=== PATIENT | male | born 1955 | race Caucasian/White ===

== ENCOUNTER 2017-08-12 14:41 | Inpatient (IN) ==
[2017-08-12 15:41] LABS: Ammonia 122 UMOL/L (11-32)
[2017-08-12 15:45] LABS: Alanine Aminotransferase 55 U/L (16-61); Albumin 3.9 G/DL (3.4-5.0); Alkaline Phosphatase 116 U/L (45-117); Aspartate Amino Transferase 67 U/L (0-37); Blood Urea Nitrogen 13 MG/DL (7-18); Calcium 9.4 MG/DL (8.5-10.1); Glucose 146 MG/DL (74-106); Osmolality,Calculated 262.8 MOS/KG (273-304); Sodium 130 MMOL/L (136-145); Total Protein 8.8 G/DL (6.4-8.3)
[2017-08-12 15:48] LABS: Basophils # 0.1 10*3/uL (0.0-0.2); Basophils % 0.8 % (0.0-0.8); Eosinophils % 0.1 % (0.00-10.9); Hematocrit 47.4 VOL% (42.0-52.0); Immature Granulocytes % 0.6 %; Immature Granulocytes Absolute 0.07 #; Lymphocytes # 1.5 10*3/uL (1.4-4.0); Lymphocytes % 12.8 % (21.2-54.2); Mean Corpuscular HGB Conc 35.9 GM/DL (32-36); Mean Corpuscular Hemoglobin 31 PG (27-34); Mean Corpuscular Volume 87.3 FL (87-102); Monocytes # 1.1 10*3/uL (0.11-0.8); Monocytes % 9.3 % (1.7-12.7); Neutrophils # 9.2 10*3/uL (1.4-7.4); Neutrophils % 76.4 % (38.7-73.9); Platelet Count 155 T/CUMM (130-400); Red Blood Count 5.43 MC/CUMM (3.8-5.5); Red Cell Distribution Width 14.4 % (9.3-17.3)
[2017-08-12 17:33] LABS: INR 1.2; PT Patient Result 12.1 SECS; Partial Thromboplastin Time 29.7 SECS (0-40)
[2017-08-12 17:41] LABS: Troponin I Only < 0.015 NG/ML (0.00-0.045)
[2017-08-12 18:24] LABS: Apearance,Urine CLEAR (Clear); Bacteria,Urine Occasional /HPF (Few); Bilirubin,Urine Negative (Negative); Blood, Urine Moderate mg/dL (Negative); Glucose,Urine (UA) Negative (Negative); Hyaline Casts,Urine 5 /LPF (0-3); Ketones,Urine Negative (Negative); Mucus,Urine Occasional /LPF (Occasional); Nitrite,Urine Negative (Negative); Protein,Urine Negative; RBC,Urine 22 /HPF (0-4); Squamous Epithelial Cell,Urine Occasional /HPF (0-10); Urine Color Yellow (Yellow); Urine Specific Gravity 1.009 (1.001-1.035); WBC,Urine <1 /HPF (0-6)
[2017-08-12 18:31] LABS: Barbiturates Screen,Urine Negative (Negative); Benzodiazepines Screen,Urine Negative (Negative); Cannabinoid Screen,Urine Negative (Negative); Opiate Screen,Urine Negative (Negative); Phencyclidine Screen,Urine Negative (Negative)
[2017-08-12] MEDS ORDERED: traZODone 50 MG TABLET PO PRN (20:05)
[2017-08-12] MEDS: SODIUM CHLORIDE 0.9% 1,000 ML IV SCH (20:46)
[2017-08-12] MEDS: LACTULOSE 20 GM/30 ML UDCUP PO SCH (20:50)
[2017-08-12] MEDS: ENOXAPARIN 40 MG/0.4 ML SYRINGE SUBCUT SCH (20:50)
[2017-08-13] MEDS ORDERED: ACETAMINOPHEN 325 MG TABLET PO PRN (00:58)
[2017-08-13] MEDS: LACTULOSE 20 GM/30 ML UDCUP PO SCH ×6 (01:09→20:17)
[2017-08-13] MEDS: SODIUM CHLORIDE 0.9% 1,000 ML IV SCH ×3 (03:44→20:19)
[2017-08-13 05:42] LABS: Basophils # 0.1 10*3/uL (0.0-0.2); Basophils % 0.7 % (0.0-0.8); Eosinophils # 0.1 10*3/uL (0.0-0.87); Eosinophils % 0.9 % (0.00-10.9); Hematocrit 41.3 VOL% (42.0-52.0); Hemoglobin 14.6 GM/DL (14.0-18.0); Immature Granulocytes % 0.2 %; Immature Granulocytes Absolute 0.02 #; Lymphocytes # 2.4 10*3/uL (1.4-4.0); Lymphocytes % 28.6 % (21.2-54.2); Mean Corpuscular HGB Conc 35.4 GM/DL (32-36); Mean Corpuscular Hemoglobin 31 PG (27-34); Mean Corpuscular Volume 87.9 FL (87-102); Mean Platelet Volume 10.9 FL (9.6-12.0); Monocytes # 0.8 10*3/uL (0.11-0.8); Monocytes % 9.5 % (1.7-12.7); Neutrophils # 4.9 10*3/uL (1.4-7.4); Neutrophils % 60.1 % (38.7-73.9); Platelet Count 117 T/CUMM (130-400); Red Cell Distribution Width 14.2 % (9.3-17.3); White Blood Count 8.2 T/CUMM (4-12)
[2017-08-13 06:22] LABS: Albumin 3.1 G/DL (3.4-5.0); Calcium 8.5 MG/DL (8.5-10.1); Osmolality,Calculated 266.4 MOS/KG (273-304); Potassium 3.7 MMOL/L (3.5-5.1); Risk Ratio 4.21; Total Protein 6.9 G/DL (6.4-8.3)
[2017-08-13] MEDS ORDERED: PANTOPRAZOLE 40 MG TABLET PO SCH (09:00)
[2017-08-13] MEDS: CYCLOBENZAPRINE 10 MG TABLET PO SCH ×2 (15:20→20:18)
[2017-08-13] MEDS: PANTOPRAZOLE 40 MG TABLET PO SCH (16:46)
[2017-08-13] MEDS: ENOXAPARIN 40 MG/0.4 ML SYRINGE SUBCUT SCH (20:18)
[2017-08-13] MEDS: ARIPiprazole 5 MG TABLET PO SCH (20:18)
[2017-08-13] MEDS: RIFAXIMIN 550 MG TABLET PO SCH (20:18)
[2017-08-13] MEDS: ONDANSETRON 4 MG/2 ML VIAL IV PRN (23:34)
[2017-08-14] MEDS: LACTULOSE 20 GM/30 ML UDCUP PO SCH ×6 (00:11→20:52)
[2017-08-14] MEDS: SODIUM CHLORIDE 0.9% 1,000 ML IV SCH (03:19)
[2017-08-14] MEDS: LEVOTHYROXINE 25 MCG TABLET PO SCH (05:55)
[2017-08-14] MEDS: RIFAXIMIN 550 MG TABLET PO SCH ×2 (09:37→20:51)
[2017-08-14] MEDS: FUROSEMIDE 20 MG TABLET PO SCH (09:37)
[2017-08-14] MEDS: CYCLOBENZAPRINE 10 MG TABLET PO SCH ×3 (09:37→20:51)
[2017-08-14] MEDS: SPIRONOLACTONE 50 MG TABLET PO SCH (09:37)
[2017-08-14] MEDS: PANTOPRAZOLE 40 MG TABLET PO SCH (16:53)
[2017-08-14] MEDS: ARIPiprazole 5 MG TABLET PO SCH (20:51)
[2017-08-14] MEDS: ENOXAPARIN 40 MG/0.4 ML SYRINGE SUBCUT SCH (20:52)
[2017-08-15] MEDS: LACTULOSE 20 GM/30 ML UDCUP PO SCH ×6 (00:49→20:50)
[2017-08-15 05:36] LABS: Basophils % 0.9 % (0.0-0.8); Eosinophils # 0.1 10*3/uL (0.0-0.87); Eosinophils % 1.4 % (0.00-10.9); Hematocrit 35.3 VOL% (42.0-52.0); Hemoglobin 12.3 GM/DL (14.0-18.0); Immature Granulocytes % 0.6 %; Immature Granulocytes Absolute 0.02 #; Lymphocytes # 1.1 10*3/uL (1.4-4.0); Lymphocytes % 32.1 % (21.2-54.2); Mean Corpuscular HGB Conc 34.8 GM/DL (32-36); Mean Corpuscular Hemoglobin 31 PG (27-34); Mean Corpuscular Volume 89.4 FL (87-102); Mean Platelet Volume 10.9 FL (9.6-12.0); Monocytes # 0.4 10*3/uL (0.11-0.8); Monocytes % 9.9 % (1.7-12.7); Neutrophils # 1.9 10*3/uL (1.4-7.4); Neutrophils % 55.1 % (38.7-73.9); Platelet Count 69 T/CUMM (130-400); Red Blood Count 3.95 MC/CUMM (3.8-5.5); Red Cell Distribution Width 14.2 % (9.3-17.3); White Blood Count 3.5 T/CUMM (4-12)
[2017-08-15 05:59] LABS: Band Neutrophils 1 % (0-10); Eosinophils 1 % (0-10); Giant Platelets Few; Hypochromasia 1+; Lymphocytes 28 % (20-55); Platelet Estimate Decreased; Segmented Neutrophils 59 % (50-85); Total Cells Counted 100
[2017-08-15 06:03] LABS: Albumin 2.7 G/DL (3.4-5.0); Bilirubin,Total 1.4 MG/DL (0.2-1.0); Potassium 3.6 MMOL/L (3.5-5.1); Total Protein 6.3 G/DL (6.4-8.3)
[2017-08-15] MEDS: LEVOTHYROXINE 25 MCG TABLET PO SCH (06:28)
[2017-08-15] MEDS: SPIRONOLACTONE 50 MG TABLET PO SCH (09:25)
[2017-08-15] MEDS: FUROSEMIDE 20 MG TABLET PO SCH (09:26)
[2017-08-15] MEDS: CYCLOBENZAPRINE 10 MG TABLET PO SCH ×3 (09:26→20:50)
[2017-08-15] MEDS: RIFAXIMIN 550 MG TABLET PO SCH ×2 (09:26→20:50)
[2017-08-15] MEDS: PANTOPRAZOLE 40 MG TABLET PO SCH (16:40)
[2017-08-15] MEDS: ARIPiprazole 5 MG TABLET PO SCH (20:50)
[2017-08-16] MEDS: LACTULOSE 20 GM/30 ML UDCUP PO SCH ×6 (00:04→20:30)
[2017-08-16 04:11] LABS: Basophils % 0.6 % (0.0-0.8); Eosinophils # 0.1 10*3/uL (0.0-0.87); Eosinophils % 2.4 % (0.00-10.9); Hematocrit 34.4 VOL% (42.0-52.0); Immature Granulocytes % 0.6 %; Lymphocytes % 30.4 % (21.2-54.2); Mean Corpuscular HGB Conc 34.9 GM/DL (32-36); Mean Corpuscular Hemoglobin 31 PG (27-34); Mean Corpuscular Volume 90.1 FL (87-102); Mean Platelet Volume 10.9 FL (9.6-12.0); Monocytes # 0.3 10*3/uL (0.11-0.8); Monocytes % 8.8 % (1.7-12.7); Neutrophils # 1.9 10*3/uL (1.4-7.4); Neutrophils % 57.2 % (38.7-73.9); Platelet Count 62 T/CUMM (130-400); Red Blood Count 3.82 MC/CUMM (3.8-5.5); Red Cell Distribution Width 14.1 % (9.3-17.3); White Blood Count 3.3 T/CUMM (4-12)
[2017-08-16 04:12] LABS: Immature Granulocytes Absolute 0.02 #
[2017-08-16 04:38] LABS: Albumin 2.5 G/DL (3.4-5.0); Bilirubin,Total 1.2 MG/DL (0.2-1.0); Calcium 8.1 MG/DL (8.5-10.1); Potassium 3.7 MMOL/L (3.5-5.1); Total Protein 5.9 G/DL (6.4-8.3)
[2017-08-16 05:35] LABS: Platelet Estimate Decreased
[2017-08-16] MEDS: LEVOTHYROXINE 25 MCG TABLET PO SCH (06:23)
[2017-08-16] MEDS: SPIRONOLACTONE 50 MG TABLET PO SCH (08:20)
[2017-08-16] MEDS: TAMSULOSIN 0.4 MG CAPSULE PO SCH (08:20)
[2017-08-16] MEDS: CYCLOBENZAPRINE 10 MG TABLET PO SCH ×3 (08:20→20:30)
[2017-08-16] MEDS: FUROSEMIDE 20 MG TABLET PO SCH (08:20)
[2017-08-16] MEDS: RIFAXIMIN 550 MG TABLET PO SCH ×2 (08:20→20:30)
[2017-08-16] MEDS: ONDANSETRON 4 MG/2 ML VIAL IV PRN (12:10)
[2017-08-16] MEDS: PANTOPRAZOLE 40 MG TABLET PO SCH (16:21)
[2017-08-16] MEDS: ARIPiprazole 5 MG TABLET PO SCH (20:30)
[2017-08-17] MEDS: LACTULOSE 20 GM/30 ML UDCUP PO SCH ×6 (00:25→20:38)
[2017-08-17 05:24] LABS: Basophils % 0.6 % (0.0-0.8); Eosinophils # 0.1 10*3/uL (0.0-0.87); Eosinophils % 3.5 % (0.00-10.9); Hematocrit 34.1 VOL% (42.0-52.0); Hemoglobin 12.5 GM/DL (14.0-18.0); Immature Granulocytes % 0.3 %; Immature Granulocytes Absolute 0.01 #; Lymphocytes # 0.9 10*3/uL (1.4-4.0); Mean Corpuscular HGB Conc 36.7 GM/DL (32-36); Mean Corpuscular Hemoglobin 32 PG (27-34); Mean Corpuscular Volume 87.2 FL (87-102); Mean Platelet Volume 10.8 FL (9.6-12.0); Monocytes # 0.3 10*3/uL (0.11-0.8); Monocytes % 7.9 % (1.7-12.7); Neutrophils # 1.9 10*3/uL (1.4-7.4); Neutrophils % 58.7 % (38.7-73.9); Platelet Count 68 T/CUMM (130-400); Red Blood Count 3.91 MC/CUMM (3.8-5.5); Red Cell Distribution Width 14.3 % (9.3-17.3); White Blood Count 3.2 T/CUMM (4-12)
[2017-08-17 05:45] LABS: Microcytosis Slight; Platelet Estimate Decreased
[2017-08-17 05:48] LABS: Albumin 2.5 G/DL (3.4-5.0); Osmolality,Calculated 270.8 MOS/KG (273-304); Potassium 3.5 MMOL/L (3.5-5.1)
[2017-08-17] MEDS: LEVOTHYROXINE 25 MCG TABLET PO SCH (06:46)
[2017-08-17] MEDS: FUROSEMIDE 20 MG TABLET PO SCH (08:01)
[2017-08-17] MEDS: TAMSULOSIN 0.4 MG CAPSULE PO SCH (08:01)
[2017-08-17] MEDS: RIFAXIMIN 550 MG TABLET PO SCH ×2 (08:01→20:37)
[2017-08-17] MEDS: CYCLOBENZAPRINE 10 MG TABLET PO SCH ×3 (08:02→20:37)
[2017-08-17] MEDS: SPIRONOLACTONE 50 MG TABLET PO SCH (08:03)
[2017-08-17] MEDS ORDERED: TUBERCULIN SKIN TEST 0.1 ML SYRINGE INTRADERM ONE (14:00)
[2017-08-17] MEDS: PANTOPRAZOLE 40 MG TABLET PO SCH (16:10)
[2017-08-17] MEDS: ZINC OXIDE PASTE 113 GM TUBE TOP SCH (20:41)
[2017-08-17] MEDS: ARIPiprazole 5 MG TABLET PO SCH (20:58)
[2017-08-18] MEDS: LACTULOSE 20 GM/30 ML UDCUP PO SCH ×4 (00:48→13:13)
[2017-08-18] MEDS: LEVOTHYROXINE 25 MCG TABLET PO SCH (07:33)
[2017-08-18] MEDS: CYCLOBENZAPRINE 10 MG TABLET PO SCH (08:53)
[2017-08-18] MEDS: TAMSULOSIN 0.4 MG CAPSULE PO SCH (08:53)
[2017-08-18] MEDS: FUROSEMIDE 20 MG TABLET PO SCH (08:53)
[2017-08-18] MEDS: RIFAXIMIN 550 MG TABLET PO SCH (08:53)
[2017-08-18] MEDS: SPIRONOLACTONE 50 MG TABLET PO SCH (08:53)
[2017-08-18] MEDS: ZINC OXIDE PASTE 113 GM TUBE TOP SCH (08:54)
[2017-08-18 11:42] VITALS: BP 130/60
== END 2017-08-18 14:10 | DRG 442 ==
LOC: N.ED 14:41 → N.EDINP 17:57 → SUATTDRO 17:57 → N.2E 20:01
PROVIDERS: ATTEND Internal Medicine

== ENCOUNTER 2017-08-20 02:28 | Inpatient (IN) ==
[2017-08-20] MEDS ORDERED: cefTRIAXone 1,000 MG in SODIUM CHLORIDE 0.9% 100 ML IV STA (04:27)
[2017-08-20] MEDS ORDERED: ALBUTEROL/IPRATROPIUM 3 ML NEB RESP TX STA (04:27)
[2017-08-20] MEDS ORDERED: hydrALAZINE 20 MG/1 ML VIAL IV STA (04:29)
[2017-08-20] MEDS ORDERED: hydrALAZINE 20 MG/1 ML VIAL ONE (04:29)
[2017-08-20 04:42] LABS: Basophils # 0.1 10*3/uL (0.0-0.2); Basophils % 0.5 % (0.0-0.8); Eosinophils % 0.4 % (0.00-10.9); Hematocrit 41.4 VOL% (42.0-52.0); Immature Granulocytes % 0.6 %; Immature Granulocytes Absolute 0.07 #; Lymphocytes # 1.4 10*3/uL (1.4-4.0); Lymphocytes % 12.6 % (21.2-54.2); Mean Corpuscular HGB Conc 37.2 GM/DL (32-36); Mean Corpuscular Hemoglobin 33 PG (27-34); Mean Corpuscular Volume 87.3 FL (87-102); Mean Platelet Volume 10.3 FL (9.6-12.0); Monocytes % 8.9 % (1.7-12.7); Neutrophils # 8.7 10*3/uL (1.4-7.4); Platelet Count 155 T/CUMM (130-400); Red Blood Count 4.74 MC/CUMM (3.8-5.5); Red Cell Distribution Width 14.6 % (9.3-17.3); White Blood Count 11.3 T/CUMM (4-12)
[2017-08-20 04:46] LABS: Hemoglobin 15.4 GM/DL (14.0-18.0)
[2017-08-20 04:47] LABS: INR 1.3; PT Patient Result 13.4 SECS
[2017-08-20 05:13] LABS: Apearance,Urine CLOUDY (Clear); Bilirubin,Urine Negative (Negative); Blood, Urine Moderate mg/dL (Negative); Glucose,Urine (UA) Negative (Negative); Ketones,Urine 5 mg/dL (Negative); Mucus,Urine Many /LPF (Occasional); Nitrite,Urine Negative (Negative); Protein,Urine 30 MG/DL; RBC,Urine 13 /HPF (0-4); Urine Color Amber (Yellow); Urine Specific Gravity 1.027 (1.001-1.035); WBC,Urine 2 /HPF (0-6)
[2017-08-20 05:18] LABS: Barbiturates Screen,Urine Negative (Negative); Benzodiazepines Screen,Urine Negative (Negative); Cannabinoid Screen,Urine Negative (Negative); Opiate Screen,Urine Negative (Negative); Phencyclidine Screen,Urine Negative (Negative)
[2017-08-20 05:20] LABS: Alanine Aminotransferase 47 U/L (16-61); Alkaline Phosphatase 77 U/L (45-117); Amylase 42 U/L (25-115); Aspartate Amino Transferase 59 U/L (0-37); Blood Urea Nitrogen 11 MG/DL (7-18); Calcium 8.5 MG/DL (8.5-10.1); Glucose 105 MG/DL (74-106); Osmolality,Calculated 268.1 MOS/KG (273-304); Potassium 4.1 MMOL/L (3.5-5.1); Sodium 135 MMOL/L (136-145); Total Protein 7.3 G/DL (6.4-8.3); Troponin I Only < 0.015 NG/ML (0.00-0.045)
[2017-08-20 05:24] LABS: ABG Base Excess -1.5 MMOL/L (-2.5-2.5); ABG HCO3 23.2 MMOL/L (20-26); ABG Oxygen Saturation 98.6 % (95-100); ABG PCO2 27.5 MM HG (35-48); ABG PH 7.478 (7.35-7.45); ABG TCO2 17.1 MMOL/L (23-27); Allen Test Positive; Pt O2 Delivery Device Room Air
[2017-08-20 05:33] LABS: Lactic Acid 2.2 MMOL/L (0.4-2.0)
[2017-08-20] MEDS ORDERED: cefTRIAXone 1,000 MG VIAL ONE (05:35)
[2017-08-20] MEDS ORDERED: PIPERACILLIN/TAZOBACTAM 3,375 MG in SODIUM CHLORIDE 0.9% 100 ML IV SCH (06:00)
[2017-08-20 06:27] LABS: INR 1.3; PT Patient Result 13.4 SECS; Partial Thromboplastin Time 28.9 SECS (0-40)
[2017-08-20 06:30] LABS: Ammonia 51 UMOL/L (11-32)
[2017-08-20] MEDS ORDERED: ONDANSETRON 4 MG/2 ML VIAL ONE ×2 (06:38→14:55)
[2017-08-20] MEDS ORDERED: PIPERACILLIN/TAZOBACTAM 3,375 MG VIAL IV ONE ×2 (07:07→07:50)
[2017-08-20] MEDS ORDERED: VANCOMYCIN INJ 1,250 MG in SODIUM CHLORIDE 0.9% 250 ML IV SCH (08:00)
[2017-08-20] MEDS: PIPERACILLIN/TAZOBACTAM 3,375 MG in SODIUM CHLORIDE 0.9% 100 ML IV SCH ×2 (08:04→16:07)
[2017-08-20] MEDS ORDERED: SODIUM CHLORIDE 0.9% 1,000 ML IV STA (08:34)
[2017-08-20] MEDS: SODIUM CHLORIDE 0.9% 1,000 ML IV SCH ×2 (08:46→19:38)
[2017-08-20] MEDS: ENOXAPARIN 40 MG/0.4 ML SYRINGE SUBCUT SCH (08:46)
[2017-08-20] MEDS ORDERED: PANTOPRAZOLE 40 MG VIAL IV ONE (09:30)
[2017-08-20] MEDS: PANTOPRAZOLE 40 MG VIAL IV SCH (09:43)
[2017-08-20 09:52] LABS: Lactic Acid 3.8 MMOL/L (0.4-2.0)
[2017-08-20] MEDS: LACTULOSE 160 GM/240 ML BOTTLE RECTAL SCH ×2 (10:38→23:17)
[2017-08-20] MEDS ORDERED: PROPOFOL 1,000 MG/100 ML BOTTLE IV ONE (13:58)
[2017-08-20 14:44] LABS: ABG Base Excess -4.8 MMOL/L (-2.5-2.5); ABG HCO3 20.5 MMOL/L (20-26); ABG Oxygen Saturation 99.5 % (95-100); ABG PH 7.387 (7.35-7.45); ABG TCO2 16.9 MMOL/L (23-27)
[2017-08-20] MEDS ORDERED: PROPOFOL 200 MG/20 ML VIAL IV ONE (14:54)
[2017-08-20] MEDS ORDERED: SEVOFLURANE 1 UNIT/15 MINUTE INH ONE (14:55)
[2017-08-20] MEDS ORDERED: PHENYLEPHRINE 10 MG/1 ML VIAL IV ONE (14:55)
[2017-08-20] MEDS ORDERED: LACTATED RINGERS 1,000 ML IV ONE (14:55)
[2017-08-20] MEDS ORDERED: ROCURONIUM 100 MG/10 ML VIAL IV ONE (14:55)
[2017-08-20] MEDS ORDERED: fentaNYL 100 MCG/2 ML VIAL ONE (14:55)
[2017-08-20] MEDS ORDERED: SODIUM CHLORIDE 0.9% 250 ML IV ONE (14:55)
[2017-08-20] MEDS: PROPOFOL 1,000 MG/100 ML BOTTLE IV SCH ×2 (15:52→23:17)
[2017-08-20] MEDS: LORazepam 2 MG/1 ML VIAL IV PRN (16:32)
[2017-08-20] MEDS: MORPHINE 2 MG/1 ML SYRINGE IV PRN (16:32)
[2017-08-20] MEDS: fentaNYL INJ 1,250 MCG in SODIUM CHLORIDE 0.9% 225 ML IV SCH (17:00)
[2017-08-20 20:23] LABS: HIV Antigen/Antibody Result Nonreactive (Nonreactive)
[2017-08-20] MEDS: methylPREDNISolone SOD SUC 40 MG/1 ML VIAL IV SCH (22:08)
[2017-08-21] MEDS: METOCLOPRAMIDE 10 MG/2 ML VIAL IV SCH ×5 (00:23→23:48)
[2017-08-21] MEDS: PIPERACILLIN/TAZOBACTAM 3,375 MG in SODIUM CHLORIDE 0.9% 100 ML IV SCH ×4 (00:23→23:48)
[2017-08-21 04:58] LABS: ABG Base Excess -1.9 MMOL/L (-2.5-2.5); ABG HCO3 22.9 MMOL/L (20-26); ABG Oxygen Saturation 99.7 % (95-100); ABG PCO2 30.9 MM HG (35-48); ABG PH 7.446 (7.35-7.45); ABG TCO2 18.9 MMOL/L (23-27)
[2017-08-21 05:24] LABS: INR 1.6; PT Patient Result 16.2 SECS; Partial Thromboplastin Time 33.1 SECS (0-40)
[2017-08-21 05:26] LABS: Basophils % 0.4 % (0.0-0.8); Eosinophils % 0.4 % (0.00-10.9); Hematocrit 36.6 VOL% (42.0-52.0); Hemoglobin 12.5 GM/DL (14.0-18.0); Immature Granulocytes % 0.5 %; Immature Granulocytes Absolute 0.05 #; Lymphocytes # 1.6 10*3/uL (1.4-4.0); Lymphocytes % 16.8 % (21.2-54.2); Mean Corpuscular HGB Conc 34.2 GM/DL (32-36); Mean Corpuscular Hemoglobin 32 PG (27-34); Mean Corpuscular Volume 93.1 FL (87-102); Mean Platelet Volume 10.7 FL (9.6-12.0); Monocytes # 0.9 10*3/uL (0.11-0.8); Monocytes % 9.2 % (1.7-12.7); Neutrophils % 72.7 % (38.7-73.9); Platelet Count 110 T/CUMM (130-400); Red Blood Count 3.93 MC/CUMM (3.8-5.5); Red Cell Distribution Width 15.5 % (9.3-17.3); White Blood Count 9.6 T/CUMM (4-12)
[2017-08-21] MEDS: SODIUM CHLORIDE 0.9% 1,000 ML IV SCH ×3 (06:20→07:48)
[2017-08-21] MEDS: PROPOFOL 1,000 MG/100 ML BOTTLE IV SCH (06:21)
[2017-08-21 06:38] LABS: Albumin 2.3 G/DL (3.4-5.0); Bilirubin,Total 1.5 MG/DL (0.2-1.0); Calcium 7.7 MG/DL (8.5-10.1); Osmolality,Calculated 284.3 MOS/KG (273-304); Potassium 3.8 MMOL/L (3.5-5.1); Total Protein 5.5 G/DL (6.4-8.3)
[2017-08-21] MEDS ORDERED: MAGNESIUM SULF RIDER 2 GM in PREMIX 1 EACH IV ONE (08:17)
[2017-08-21] MEDS: fentaNYL INJ 1,250 MCG in SODIUM CHLORIDE 0.9% 225 ML IV SCH (09:05)
[2017-08-21] MEDS: ENOXAPARIN 40 MG/0.4 ML SYRINGE SUBCUT SCH (09:21)
[2017-08-21] MEDS: LACTULOSE 20 GM/30 ML UDCUP NG SCH ×3 (09:21→21:33)
[2017-08-21] MEDS: methylPREDNISolone SOD SUC 40 MG/1 ML VIAL IV SCH ×2 (09:22→21:33)
[2017-08-21] MEDS: PANTOPRAZOLE 40 MG VIAL IV SCH (09:23)
[2017-08-21] MEDS: LACTATED RINGERS 1,000 ML IV SCH ×3 (09:25→22:04)
[2017-08-21 11:32] LABS: ABG Base Excess -3.5 MMOL/L (-2.5-2.5); ABG HCO3 21.5 MMOL/L (20-26); ABG Oxygen Saturation 96.4 % (95-100); ABG PCO2 42.4 MM HG (35-48); ABG PO2 91.2 MM HG (80-95); ABG TCO2 19.7 MMOL/L (23-27)
[2017-08-21] MEDS: ZINC OXIDE PASTE 113 GM TUBE TOP SCH ×2 (13:13→21:45)
[2017-08-21 14:53] LABS: ABG Base Excess -2.9 MMOL/L (-2.5-2.5); ABG Oxygen Saturation 97.9 % (95-100); ABG PCO2 34.7 MM HG (35-48); ABG PH 7.396 (7.35-7.45); ABG TCO2 18.6 MMOL/L (23-27)
[2017-08-22] MEDS: LACTATED RINGERS 1,000 ML IV SCH ×5 (03:15→17:40)
[2017-08-22 04:49] LABS: Basophils % 0.3 % (0.0-0.8); Hematocrit 37.1 VOL% (42.0-52.0); Immature Granulocytes % 1.2 %; Immature Granulocytes Absolute 0.09 #; Lymphocytes # 0.7 10*3/uL (1.4-4.0); Lymphocytes % 9.6 % (21.2-54.2); Mean Corpuscular Hemoglobin 32 PG (27-34); Mean Corpuscular Volume 91.4 FL (87-102); Mean Platelet Volume 10.7 FL (9.6-12.0); Monocytes # 0.4 10*3/uL (0.11-0.8); Monocytes % 5.7 % (1.7-12.7); Neutrophils # 6.5 10*3/uL (1.4-7.4); Neutrophils % 83.2 % (38.7-73.9); Platelet Count 90 T/CUMM (130-400); Red Blood Count 4.06 MC/CUMM (3.8-5.5); Red Cell Distribution Width 14.8 % (9.3-17.3); White Blood Count 7.7 T/CUMM (4-12)
[2017-08-22 05:52] LABS: Platelet Estimate Decreased
[2017-08-22 06:13] LABS: Albumin 2.3 G/DL (3.4-5.0); Bilirubin,Total 1.2 MG/DL (0.2-1.0); Calcium 8.3 MG/DL (8.5-10.1); Osmolality,Calculated 281.5 MOS/KG (273-304); Potassium 4.5 MMOL/L (3.5-5.1); Total Protein 5.9 G/DL (6.4-8.3)
[2017-08-22] MEDS: METOCLOPRAMIDE 10 MG/2 ML VIAL IV SCH ×3 (06:20→19:25)
[2017-08-22] MEDS: ONDANSETRON 4 MG/2 ML VIAL IV PRN ×2 (07:52→16:07)
[2017-08-22] MEDS: LACTULOSE 20 GM/30 ML UDCUP NG SCH ×3 (09:13→22:39)
[2017-08-22] MEDS: ENOXAPARIN 40 MG/0.4 ML SYRINGE SUBCUT SCH (09:13)
[2017-08-22] MEDS: PANTOPRAZOLE 40 MG VIAL IV SCH (09:14)
[2017-08-22] MEDS: ZINC OXIDE PASTE 113 GM TUBE TOP SCH ×2 (09:14→23:18)
[2017-08-22] MEDS: PIPERACILLIN/TAZOBACTAM 3,375 MG in SODIUM CHLORIDE 0.9% 100 ML IV SCH ×2 (09:14→16:17)
[2017-08-22] MEDS: methylPREDNISolone SOD SUC 40 MG/1 ML VIAL IV SCH ×2 (09:15→22:52)
[2017-08-22] MEDS: TAMSULOSIN 0.4 MG CAPSULE PO SCH (10:02)
[2017-08-22] MEDS: MORPHINE 2 MG/1 ML SYRINGE IV PRN ×2 (16:24→22:56)
[2017-08-23] MEDS: METOCLOPRAMIDE 10 MG/2 ML VIAL IV SCH ×4 (02:59→18:14)
[2017-08-23] MEDS: PIPERACILLIN/TAZOBACTAM 3,375 MG in SODIUM CHLORIDE 0.9% 100 ML IV SCH ×2 (02:59→09:46)
[2017-08-23] MEDS: LACTATED RINGERS 1,000 ML IV SCH ×4 (03:02→20:30)
[2017-08-23] MEDS: LEVOTHYROXINE 50 MCG TABLET PO SCH ×2 (06:08→07:09)
[2017-08-23 07:21] LABS: Basophils % 0.2 % (0.0-0.8); Hematocrit 37.6 VOL% (42.0-52.0); Hemoglobin 12.7 GM/DL (14.0-18.0); Immature Granulocytes % 1.5 %; Immature Granulocytes Absolute 0.09 #; Lymphocytes # 0.6 10*3/uL (1.4-4.0); Lymphocytes % 9.8 % (21.2-54.2); Mean Corpuscular HGB Conc 33.8 GM/DL (32-36); Mean Corpuscular Hemoglobin 32 PG (27-34); Mean Corpuscular Volume 93.3 FL (87-102); Mean Platelet Volume 10.8 FL (9.6-12.0); Monocytes # 0.3 10*3/uL (0.11-0.8); Monocytes % 5.5 % (1.7-12.7); Red Blood Count 4.03 MC/CUMM (3.8-5.5); Red Cell Distribution Width 14.6 % (9.3-17.3)
[2017-08-23 07:24] LABS: Platelet Count 94 T/CUMM (130-400)
[2017-08-23 07:44] LABS: Platelet Estimate Decreased
[2017-08-23 07:46] LABS: Albumin 2.3 G/DL (3.4-5.0); Bilirubin,Total 1.6 MG/DL (0.2-1.0); Calcium 8.9 MG/DL (8.5-10.1); Osmolality,Calculated 288.1 MOS/KG (273-304); Potassium 4.8 MMOL/L (3.5-5.1); Total Protein 6.2 G/DL (6.4-8.3)
[2017-08-23] MEDS: methylPREDNISolone SOD SUC 40 MG/1 ML VIAL IV SCH ×2 (09:27→22:22)
[2017-08-23] MEDS: PANTOPRAZOLE 40 MG VIAL IV SCH (09:29)
[2017-08-23] MEDS: ENOXAPARIN 40 MG/0.4 ML SYRINGE SUBCUT SCH (09:31)
[2017-08-23] MEDS: TAMSULOSIN 0.4 MG CAPSULE PO SCH (09:33)
[2017-08-23] MEDS: LACTULOSE 20 GM/30 ML UDCUP NG SCH ×3 (09:33→22:22)
[2017-08-23] MEDS: ZINC OXIDE PASTE 113 GM TUBE TOP SCH ×2 (09:47→21:49)
[2017-08-23] MEDS: ONDANSETRON 4 MG/2 ML VIAL IV PRN (12:00)
[2017-08-23] MEDS: LEVOFLOXACIN INJ 750 MG in PREMIX 1 EACH IV SCH (12:02)
[2017-08-24 03:25] LABS: ABG Base Excess 4.1 MMOL/L (-2.5-2.5); ABG HCO3 27.5 MMOL/L (20-26); ABG Oxygen Saturation 95.7 % (95-100); ABG PCO2 37.1 MM HG (35-48); ABG PH 7.488 (7.35-7.45); ABG PO2 85.8 MM HG (80-95); ABG TCO2 28.7 MMOL/L (23-27); Allen Test Positive
[2017-08-24] MEDS: LACTATED RINGERS 1,000 ML IV SCH ×4 (05:32→20:32)
[2017-08-24] MEDS: METOCLOPRAMIDE 10 MG/2 ML VIAL IV SCH ×4 (05:34→17:31)
[2017-08-24 05:58] LABS: Basophils % 0.3 % (0.0-0.8); Hematocrit 37.3 VOL% (42.0-52.0); Hemoglobin 13.2 GM/DL (14.0-18.0); Immature Granulocytes % 2.3 %; Immature Granulocytes Absolute 0.14 #; Lymphocytes # 0.6 10*3/uL (1.4-4.0); Lymphocytes % 10.7 % (21.2-54.2); Mean Corpuscular HGB Conc 35.4 GM/DL (32-36); Mean Corpuscular Hemoglobin 32 PG (27-34); Mean Corpuscular Volume 89.9 FL (87-102); Mean Platelet Volume 10.8 FL (9.6-12.0); Monocytes # 0.5 10*3/uL (0.11-0.8); Monocytes % 8.8 % (1.7-12.7); Neutrophils # 4.7 10*3/uL (1.4-7.4); Neutrophils % 77.9 % (38.7-73.9); Platelet Count 95 T/CUMM (130-400); Red Blood Count 4.15 MC/CUMM (3.8-5.5); Red Cell Distribution Width 14.5 % (9.3-17.3)
[2017-08-24 06:24] LABS: Hypochromasia 1+
[2017-08-24 06:28] LABS: Albumin 2.3 G/DL (3.4-5.0); Bilirubin,Total 0.9 MG/DL (0.2-1.0); Calcium 9.1 MG/DL (8.5-10.1); Osmolality,Calculated 290.8 MOS/KG (273-304); Potassium 4.2 MMOL/L (3.5-5.1); Total Protein 6.1 G/DL (6.4-8.3)
[2017-08-24] MEDS: LEVOTHYROXINE 50 MCG TABLET PO SCH (07:04)
[2017-08-24] MEDS: PANTOPRAZOLE 40 MG VIAL IV SCH (09:06)
[2017-08-24] MEDS: TAMSULOSIN 0.4 MG CAPSULE PO SCH (09:06)
[2017-08-24] MEDS: methylPREDNISolone SOD SUC 40 MG/1 ML VIAL IV SCH ×2 (09:06→22:36)
[2017-08-24] MEDS: LEVOFLOXACIN INJ 750 MG in PREMIX 1 EACH IV SCH (09:06)
[2017-08-24] MEDS: LACTULOSE 20 GM/30 ML UDCUP NG SCH ×2 (09:06→22:36)
[2017-08-24] MEDS: ENOXAPARIN 40 MG/0.4 ML SYRINGE SUBCUT SCH (09:06)
[2017-08-24] MEDS: ZINC OXIDE PASTE 113 GM TUBE TOP SCH (09:08)
[2017-08-24] MEDS ORDERED: DEXTROSE 50% 25 GM/50 ML VIAL IV PRN (16:06)
[2017-08-24] MEDS ORDERED: GLUCAGON 1 MG VIAL IM PRN (16:06)
[2017-08-24] MEDS ORDERED: INSULIN LISPRO 100 UNIT/ML SUBCUT SCH (16:30)
[2017-08-24] MEDS: MORPHINE 2 MG/1 ML SYRINGE IV PRN (22:39)
[2017-08-25] MEDS: LACTATED RINGERS 1,000 ML IV SCH ×4 (01:30→17:31)
[2017-08-25] MEDS: METOCLOPRAMIDE 10 MG/2 ML VIAL IV SCH ×5 (06:09→23:22)
[2017-08-25] MEDS: ZINC OXIDE PASTE 113 GM TUBE TOP SCH ×3 (06:12→20:22)
[2017-08-25 06:58] LABS: Basophils % 0.2 % (0.0-0.8); Hematocrit 38.1 VOL% (42.0-52.0); Hemoglobin 12.9 GM/DL (14.0-18.0); Immature Granulocytes % 4.1 %; Immature Granulocytes Absolute 0.18 #; Lymphocytes # 0.5 10*3/uL (1.4-4.0); Lymphocytes % 11.5 % (21.2-54.2); Mean Corpuscular HGB Conc 33.9 GM/DL (32-36); Mean Corpuscular Hemoglobin 32 PG (27-34); Mean Corpuscular Volume 94.1 FL (87-102); Mean Platelet Volume 10.9 FL (9.6-12.0); Monocytes # 0.2 10*3/uL (0.11-0.8); Monocytes % 5.3 % (1.7-12.7); Neutrophils # 3.4 10*3/uL (1.4-7.4); Neutrophils % 78.9 % (38.7-73.9); Platelet Count 84 T/CUMM (130-400); Red Blood Count 4.05 MC/CUMM (3.8-5.5); Red Cell Distribution Width 14.3 % (9.3-17.3); White Blood Count 4.4 T/CUMM (4-12)
[2017-08-25 07:14] LABS: Hypochromasia 1+; Microcytosis Slight; Ovalocytes Slight; Platelet Estimate Decreased
[2017-08-25 07:21] LABS: Osmolality,Calculated 289.1 MOS/KG (273-304); Potassium 4.6 MMOL/L (3.5-5.1)
[2017-08-25] MEDS: LEVOTHYROXINE 50 MCG TABLET PO SCH (08:54)
[2017-08-25] MEDS: LEVOFLOXACIN INJ 750 MG in PREMIX 1 EACH IV SCH (09:55)
[2017-08-25] MEDS: LACTULOSE 20 GM/30 ML UDCUP NG SCH ×2 (09:56→20:22)
[2017-08-25] MEDS: ENOXAPARIN 40 MG/0.4 ML SYRINGE SUBCUT SCH (09:56)
[2017-08-25] MEDS: TAMSULOSIN 0.4 MG CAPSULE PO SCH (09:56)
[2017-08-25] MEDS: PANTOPRAZOLE 40 MG VIAL IV SCH (09:57)
[2017-08-25] MEDS: methylPREDNISolone SOD SUC 40 MG/1 ML VIAL IV SCH (09:57)
[2017-08-26 04:54] LABS: Basophils % 0.2 % (0.0-0.8); Eosinophils % 0.2 % (0.00-10.9); Hematocrit 35.1 VOL% (42.0-52.0); Hemoglobin 12.1 GM/DL (14.0-18.0); Immature Granulocytes Absolute 0.18 #; Lymphocytes # 0.8 10*3/uL (1.4-4.0); Lymphocytes % 13.1 % (21.2-54.2); Mean Corpuscular HGB Conc 34.5 GM/DL (32-36); Mean Corpuscular Hemoglobin 32 PG (27-34); Mean Corpuscular Volume 92.9 FL (87-102); Mean Platelet Volume 11.3 FL (9.6-12.0); Monocytes # 0.5 10*3/uL (0.11-0.8); Monocytes % 7.6 % (1.7-12.7); Neutrophils # 4.6 10*3/uL (1.4-7.4); Neutrophils % 75.9 % (38.7-73.9); Platelet Count 88 T/CUMM (130-400); Red Blood Count 3.78 MC/CUMM (3.8-5.5); Red Cell Distribution Width 14.2 % (9.3-17.3)
[2017-08-26 05:20] LABS: Hypochromasia 1+; Platelet Estimate Decreased
[2017-08-26 05:21] LABS: Giant Platelets Few; Microcytosis Slight
[2017-08-26 05:32] LABS: Calcium 8.5 MG/DL (8.5-10.1); Osmolality,Calculated 282.4 MOS/KG (273-304); Potassium 4.2 MMOL/L (3.5-5.1); Total Protein 5.1 G/DL (6.4-8.3)
[2017-08-26] MEDS: LEVOTHYROXINE 50 MCG TABLET PO SCH (05:35)
[2017-08-26] MEDS: METOCLOPRAMIDE 10 MG/2 ML VIAL IV SCH ×4 (05:35→23:43)
[2017-08-26] MEDS: LACTATED RINGERS 1,000 ML IV SCH ×2 (05:36→06:23)
[2017-08-26] MEDS: TAMSULOSIN 0.4 MG CAPSULE PO SCH (10:24)
[2017-08-26] MEDS: LACTULOSE 20 GM/30 ML UDCUP NG SCH (10:28)
[2017-08-26] MEDS: PANTOPRAZOLE 40 MG VIAL IV SCH (10:29)
[2017-08-26] MEDS: LEVOFLOXACIN INJ 750 MG in PREMIX 1 EACH IV SCH (10:32)
[2017-08-26] MEDS: ENOXAPARIN 40 MG/0.4 ML SYRINGE SUBCUT SCH (10:32)
[2017-08-26] MEDS: ZINC OXIDE PASTE 113 GM TUBE TOP SCH ×2 (10:34→23:46)
[2017-08-26] MEDS: methylPREDNISolone SOD SUC 40 MG/1 ML VIAL IV SCH (13:39)
[2017-08-26] MEDS: MORPHINE 2 MG/1 ML SYRINGE IV PRN (13:46)
[2017-08-26] MEDS: LACTULOSE 20 GM/30 ML UDCUP PO SCH (20:29)
[2017-08-27] MEDS: LACTATED RINGERS 1,000 ML IV SCH (02:10)
[2017-08-27] MEDS: LEVOTHYROXINE 50 MCG TABLET PO SCH (06:00)
[2017-08-27] MEDS: METOCLOPRAMIDE 10 MG/2 ML VIAL IV SCH ×2 (06:08→15:25)
[2017-08-27] MEDS ORDERED: TUBERCULIN SKIN TEST 0.1 ML SYRINGE INTRADERM ONE (08:36)
[2017-08-27] MEDS: ZINC OXIDE PASTE 113 GM TUBE TOP SCH ×2 (10:15→21:18)
[2017-08-27] MEDS: LORazepam 2 MG/1 ML VIAL IV PRN (10:55)
[2017-08-27] MEDS: PANTOPRAZOLE 40 MG VIAL IV SCH (10:59)
[2017-08-27] MEDS: LEVOFLOXACIN INJ 750 MG in PREMIX 1 EACH IV SCH (11:01)
[2017-08-27] MEDS: LACTULOSE 20 GM/30 ML UDCUP PO SCH ×3 (13:07→21:18)
[2017-08-27] MEDS: TAMSULOSIN 0.4 MG CAPSULE PO SCH (13:07)
[2017-08-27] MEDS: ENOXAPARIN 40 MG/0.4 ML SYRINGE SUBCUT SCH (13:41)
[2017-08-27] MEDS: methylPREDNISolone SOD SUC 40 MG/1 ML VIAL IV SCH (13:42)
[2017-08-27] MEDS ORDERED: HALOPERIDOL 5 MG/ML AMP IM PRN (16:33)
[2017-08-27] MEDS: METOCLOPRAMIDE 10 MG TABLET PO SCH (21:18)
[2017-08-28] MEDS: LEVOTHYROXINE 50 MCG TABLET PO SCH (06:22)
[2017-08-28] MEDS: METOCLOPRAMIDE 10 MG TABLET PO SCH ×4 (07:25→21:56)
[2017-08-28] MEDS ORDERED: PANTOPRAZOLE 40 MG TABLET PO SCH (09:00)
[2017-08-28] MEDS: LACTATED RINGERS 1,000 ML IV SCH ×2 (10:39→12:57)
[2017-08-28] MEDS: TAMSULOSIN 0.4 MG CAPSULE PO SCH (10:48)
[2017-08-28] MEDS: ENOXAPARIN 40 MG/0.4 ML SYRINGE SUBCUT SCH (10:49)
[2017-08-28] MEDS: LACTULOSE 20 GM/30 ML UDCUP PO SCH ×3 (10:49→21:56)
[2017-08-28] MEDS: ZINC OXIDE PASTE 113 GM TUBE TOP SCH ×2 (10:58→21:56)
[2017-08-28] MEDS: LEVOFLOXACIN INJ 750 MG in PREMIX 1 EACH IV SCH (12:57)
[2017-08-28 20:47] VITALS: BP 129/78
== END 2017-08-28 22:30 | DRG 336 ==
LOC: EDBD → EDUNIT# → N.ED 02:28 → N.EDINP 06:49 → SUATTDRO 06:49 → N.EDINP 12:50 → N.ICU 14:49 → N.3E 08-22 11:20
PROVIDERS: ADMIT Family Medicine; ATTEND Internal Medicine

== ENCOUNTER 2017-08-31 14:59 | Inpatient (IN) ==
[2017-08-31 15:49] LABS: Basophils # 0.1 10*3/uL (0.0-0.2); Basophils % 0.3 % (0.0-0.8); Eosinophils # 0.1 10*3/uL (0.0-0.87); Eosinophils % 0.6 % (0.00-10.9); Hematocrit 41.3 VOL% (42.0-52.0); Immature Granulocytes % 1.4 %; Immature Granulocytes Absolute 0.26 #; Lymphocytes # 1.2 10*3/uL (1.4-4.0); Lymphocytes % 6.1 % (21.2-54.2); Mean Corpuscular HGB Conc 36.3 GM/DL (32-36); Mean Corpuscular Hemoglobin 32 PG (27-34); Mean Platelet Volume 11.6 FL (9.6-12.0); Monocytes # 1.4 10*3/uL (0.11-0.8); Monocytes % 7.1 % (1.7-12.7); Neutrophils # 16.2 10*3/uL (1.4-7.4); Neutrophils % 84.5 % (38.7-73.9); Platelet Count 160 T/CUMM (130-400); Red Blood Count 4.64 MC/CUMM (3.8-5.5); Red Cell Distribution Width 15.9 % (9.3-17.3); White Blood Count 19.1 T/CUMM (4-12)
[2017-08-31 15:57] LABS: INR 1.3; PT Patient Result 13.4 SECS
[2017-08-31 16:22] LABS: Ammonia 81 UMOL/L (11-32)
[2017-08-31 16:28] LABS: Alanine Aminotransferase 65 U/L (16-61); Albumin 2.7 G/DL (3.4-5.0); Alkaline Phosphatase 70 U/L (45-117); Aspartate Amino Transferase 80 U/L (0-37); Blood Urea Nitrogen 18 MG/DL (7-18); Calcium 8.4 MG/DL (8.5-10.1); Glucose 114 MG/DL (74-106); Lactic Acid 4.7 MMOL/L (0.4-2.0); Osmolality,Calculated 275.8 MOS/KG (273-304); Sodium 137 MMOL/L (136-145); Total Protein 6.2 G/DL (6.4-8.3); Troponin I Only < 0.015 NG/ML (0.00-0.045)
[2017-08-31 16:37] LABS: Apearance,Urine CLEAR (Clear); Bacteria,Urine Occasional /HPF (Few); Bilirubin,Urine Negative (Negative); Blood, Urine Large mg/dL (Negative); Glucose,Urine (UA) Negative (Negative); Hyaline Casts,Urine 7 /LPF (0-3); Ketones,Urine Negative (Negative); Mucus,Urine Few /LPF (Occasional); Nitrite,Urine Negative (Negative); Protein,Urine 30 MG/DL; RBC,Urine 173 /HPF (0-4); Sperm,Urine Occasional /HPF (Negative); Squamous Epithelial Cell,Urine Occasional /HPF (0-10); Urine Color Amber (Yellow); Urine Specific Gravity 1.029 (1.001-1.035); WBC,Urine 14 /HPF (0-6)
[2017-08-31] MEDS ORDERED: SODIUM CHLORIDE 0.9% 1,000 ML IV STA (16:45)
[2017-08-31] MEDS ORDERED: MEROPENEM 1,000 MG in SYRINGE 1 EACH IV SCH (17:00)
[2017-08-31 17:23] LABS: Barbiturates Screen,Urine Negative (Negative); Benzodiazepines Screen,Urine Positive (Negative); Cannabinoid Screen,Urine Negative (Negative); Opiate Screen,Urine Negative (Negative); Phencyclidine Screen,Urine Negative (Negative)
[2017-08-31] MEDS ORDERED: MEROPENEM 1,000 MG VIAL IV ONE (17:43)
[2017-08-31] MEDS ORDERED: SODIUM CHLORIDE 0.9% 3,000 ML IV ONE (18:01)
[2017-08-31 18:48] LABS: ABG HCO3 24.9 MMOL/L (20-26); ABG Oxygen Saturation 97.9 % (95-100); ABG PCO2 33.8 MM HG (35-48); ABG PH 7.486 (7.35-7.45); ABG PO2 112.7 MM HG (80-95)
[2017-08-31 19:02] LABS: INR 1.3; PT Patient Result 13.3 SECS; Partial Thromboplastin Time 26.6 SECS (0-40)
[2017-08-31] MEDS ORDERED: PIPERACILLIN/TAZOBACTAM 3,375 MG VIAL IV ONE (19:23)
[2017-08-31] MEDS: PIPERACILLIN/TAZOBACTAM 3,375 MG in SODIUM CHLORIDE 0.9% 100 ML IV SCH (19:30)
[2017-08-31] MEDS ORDERED: LACTULOSE 20 GM/30 ML UDCUP ONE (20:01)
[2017-08-31] MEDS: LACTULOSE 20 GM/30 ML UDCUP NG SCH ×2 (20:02→23:15)
[2017-08-31] MEDS ORDERED: VANCOMYCIN INJ 1,500 MG in SODIUM CHLORIDE 0.9% 250 ML IV SCH (23:00)
[2017-09-01 03:19] LABS: ABG Base Excess -1.1 MMOL/L (-2.5-2.5); ABG HCO3 23.5 MMOL/L (20-26); ABG Oxygen Saturation 97.9 % (95-100); ABG PH 7.455 (7.35-7.45); ABG TCO2 18.9 MMOL/L (23-27); Allen Test Positive
[2017-09-01] MEDS: PIPERACILLIN/TAZOBACTAM 3,375 MG in SODIUM CHLORIDE 0.9% 100 ML IV SCH ×3 (03:22→18:32)
[2017-09-01] MEDS: LACTULOSE 20 GM/30 ML UDCUP NG SCH ×5 (03:22→20:25)
[2017-09-01 05:48] LABS: Basophils # 0.1 10*3/uL (0.0-0.2); Basophils % 0.3 % (0.0-0.8); Eosinophils # 0.1 10*3/uL (0.0-0.87); Eosinophils % 0.4 % (0.00-10.9); Hematocrit 37.7 VOL% (42.0-52.0); Immature Granulocytes Absolute 0.16 #; Lymphocytes # 1.3 10*3/uL (1.4-4.0); Mean Corpuscular HGB Conc 34.5 GM/DL (32-36); Mean Corpuscular Hemoglobin 32 PG (27-34); Mean Corpuscular Volume 93.3 FL (87-102); Mean Platelet Volume 11.4 FL (9.6-12.0); Monocytes # 1.2 10*3/uL (0.11-0.8); Monocytes % 7.4 % (1.7-12.7); Neutrophils # 13.5 10*3/uL (1.4-7.4); Neutrophils % 82.9 % (38.7-73.9); Red Blood Count 4.04 MC/CUMM (3.8-5.5); Red Cell Distribution Width 15.8 % (9.3-17.3); White Blood Count 16.2 T/CUMM (4-12)
[2017-09-01 05:58] LABS: Apearance,Urine CLOUDY (Clear); Bilirubin,Urine Negative (Negative); Blood, Urine Large mg/dL (Negative); Glucose,Urine (UA) Negative (Negative); Ketones,Urine 5 mg/dL (Negative); Mucus,Urine Occasional /LPF (Occasional); Nitrite,Urine Negative (Negative); Protein,Urine 30 MG/DL; RBC,Urine 86 /HPF (0-4); Squamous Epithelial Cell,Urine Occasional /HPF (0-10); Urine Color Amber (Yellow); Urine Specific Gravity 1.059 (1.001-1.035); WBC,Urine 6 /HPF (0-6)
[2017-09-01 06:05] LABS: Platelet Count 122 T/CUMM (130-400)
[2017-09-01 06:18] LABS: Albumin 2.4 G/DL (3.4-5.0); Bilirubin,Total 1.8 MG/DL (0.2-1.0); Calcium 7.8 MG/DL (8.5-10.1); Potassium 3.4 MMOL/L (3.5-5.1); Total Protein 5.6 G/DL (6.4-8.3)
[2017-09-01 06:20] LABS: Lactic Acid 2.2 MMOL/L (0.4-2.0)
[2017-09-01 09:33] LABS: Lactic Acid 2.5 MMOL/L (0.4-2.0)
[2017-09-01] MEDS: TAMSULOSIN 0.4 MG CAPSULE PO SCH (10:43)
[2017-09-01] MEDS: SPIRONOLACTONE 50 MG TABLET PO SCH (10:55)
[2017-09-01] MEDS: VANCOMYCIN INJ 1,500 MG in SODIUM CHLORIDE 0.9% 500 ML IV SCH ×2 (11:30→23:56)
[2017-09-01] MEDS ORDERED: RIFAXIMIN 550 MG TABLET PO SCH (21:00)
[2017-09-02] MEDS: LACTULOSE 20 GM/30 ML UDCUP NG SCH ×4 (00:20→17:31)
[2017-09-02] MEDS: PIPERACILLIN/TAZOBACTAM 3,375 MG in SODIUM CHLORIDE 0.9% 100 ML IV SCH ×3 (03:15→17:30)
[2017-09-02 05:21] LABS: Basophils % 0.3 % (0.0-0.8); Eosinophils # 0.1 10*3/uL (0.0-0.87); Eosinophils % 0.6 % (0.00-10.9); Hematocrit 37.1 VOL% (42.0-52.0); Hemoglobin 12.8 GM/DL (14.0-18.0); Immature Granulocytes % 0.9 %; Immature Granulocytes Absolute 0.12 #; Lymphocytes # 1.5 10*3/uL (1.4-4.0); Lymphocytes % 11.5 % (21.2-54.2); Mean Corpuscular HGB Conc 34.5 GM/DL (32-36); Mean Corpuscular Hemoglobin 32 PG (27-34); Mean Corpuscular Volume 93.7 FL (87-102); Mean Platelet Volume 11.4 FL (9.6-12.0); Monocytes % 7.6 % (1.7-12.7); Neutrophils # 10.4 10*3/uL (1.4-7.4); Neutrophils % 79.1 % (38.7-73.9); Platelet Count 142 T/CUMM (130-400); Red Blood Count 3.96 MC/CUMM (3.8-5.5); Red Cell Distribution Width 16.2 % (9.3-17.3); White Blood Count 13.2 T/CUMM (4-12)
[2017-09-02 06:10] LABS: Albumin 2.3 G/DL (3.4-5.0); Bilirubin,Direct 0.71 MG/DL (0.0-0.20); Bilirubin,Indirect 1.1 MG/DL (0.0-1.0); Bilirubin,Total 1.8 MG/DL (0.2-1.0); Calcium 7.7 MG/DL (8.5-10.1); Osmolality,Calculated 286.8 MOS/KG (273-304); Potassium 3.6 MMOL/L (3.5-5.1); Total Protein 5.3 G/DL (6.4-8.3)
[2017-09-02] MEDS: LORazepam 2 MG/1 ML VIAL IV PRN ×3 (07:51→20:31)
[2017-09-02] MEDS ORDERED: LORazepam 2 MG/1 ML VIAL ONE (07:53)
[2017-09-02] MEDS: LEVOTHYROXINE 50 MCG TABLET PO SCH (08:07)
[2017-09-02] MEDS: SPIRONOLACTONE 50 MG TABLET PO SCH (08:07)
[2017-09-02] MEDS: TAMSULOSIN 0.4 MG CAPSULE PO SCH (08:07)
[2017-09-02] MEDS: VANCOMYCIN INJ 1,500 MG in SODIUM CHLORIDE 0.9% 500 ML IV SCH ×2 (11:17→22:58)
[2017-09-03] MEDS: LACTULOSE 20 GM/30 ML UDCUP NG SCH ×5 (00:23→23:14)
[2017-09-03] MEDS: PIPERACILLIN/TAZOBACTAM 3,375 MG in SODIUM CHLORIDE 0.9% 100 ML IV SCH ×3 (03:18→17:28)
[2017-09-03] MEDS ORDERED: LEVOFLOXACIN INJ 100 ML IV ONE (07:58)
[2017-09-03] MEDS: TAMSULOSIN 0.4 MG CAPSULE PO SCH (08:06)
[2017-09-03] MEDS: SPIRONOLACTONE 50 MG TABLET PO SCH (08:06)
[2017-09-03] MEDS: LEVOTHYROXINE 50 MCG TABLET PO SCH (08:06)
[2017-09-03] MEDS: VANCOMYCIN INJ 1,500 MG in SODIUM CHLORIDE 0.9% 500 ML IV SCH ×2 (11:20→23:12)
[2017-09-04] MEDS: PIPERACILLIN/TAZOBACTAM 3,375 MG in SODIUM CHLORIDE 0.9% 100 ML IV SCH ×3 (03:20→17:55)
[2017-09-04] MEDS: LACTULOSE 20 GM/30 ML UDCUP NG SCH (05:39)
[2017-09-04] MEDS: POTASSIUM CHLORIDE 20 MEQ TABLET PO SCH (09:49)
[2017-09-04] MEDS: TAMSULOSIN 0.4 MG CAPSULE PO SCH (09:49)
[2017-09-04] MEDS: LEVOTHYROXINE 50 MCG TABLET PO SCH (09:49)
[2017-09-04] MEDS: FUROSEMIDE 20 MG TABLET PO SCH (09:49)
[2017-09-04] MEDS: SPIRONOLACTONE 50 MG TABLET PO SCH (09:50)
[2017-09-04] MEDS: ESCITALOPRAM 10 MG TABLET PO SCH (09:50)
[2017-09-04] MEDS: LACTULOSE 20 GM/30 ML UDCUP PO SCH ×3 (11:57→23:16)
[2017-09-04] MEDS: VANCOMYCIN INJ 1,500 MG in SODIUM CHLORIDE 0.9% 500 ML IV SCH ×2 (14:12→17:54)
[2017-09-05] MEDS: PIPERACILLIN/TAZOBACTAM 3,375 MG in SODIUM CHLORIDE 0.9% 100 ML IV SCH ×3 (02:30→23:38)
[2017-09-05 04:37] LABS: Basophils # 0.1 10*3/uL (0.0-0.2); Basophils % 0.6 % (0.0-0.8); Eosinophils # 0.4 10*3/uL (0.0-0.87); Eosinophils % 4.9 % (0.00-10.9); Hematocrit 33.9 VOL% (42.0-52.0); Hemoglobin 11.6 GM/DL (14.0-18.0); Immature Granulocytes % 0.6 %; Immature Granulocytes Absolute 0.05 #; Lymphocytes # 1.2 10*3/uL (1.4-4.0); Lymphocytes % 15.1 % (21.2-54.2); Mean Corpuscular HGB Conc 34.2 GM/DL (32-36); Mean Corpuscular Hemoglobin 32 PG (27-34); Mean Corpuscular Volume 94.7 FL (87-102); Mean Platelet Volume 11.6 FL (9.6-12.0); Monocytes # 0.7 10*3/uL (0.11-0.8); Monocytes % 8.2 % (1.7-12.7); Neutrophils # 5.8 10*3/uL (1.4-7.4); Neutrophils % 70.6 % (38.7-73.9); Red Blood Count 3.58 MC/CUMM (3.8-5.5); Red Cell Distribution Width 16.1 % (9.3-17.3); White Blood Count 8.2 T/CUMM (4-12)
[2017-09-05 04:54] LABS: Platelet Count 98 T/CUMM (130-400)
[2017-09-05 05:02] LABS: Calcium 7.9 MG/DL (8.5-10.1); Osmolality,Calculated 280.4 MOS/KG (273-304); Potassium 3.4 MMOL/L (3.5-5.1)
[2017-09-05] MEDS: LACTULOSE 20 GM/30 ML UDCUP PO SCH ×4 (05:53→22:17)
[2017-09-05] MEDS: LEVOTHYROXINE 50 MCG TABLET PO SCH (07:17)
[2017-09-05] MEDS: FUROSEMIDE 20 MG TABLET PO SCH (08:11)
[2017-09-05] MEDS: SPIRONOLACTONE 50 MG TABLET PO SCH (08:11)
[2017-09-05] MEDS: TAMSULOSIN 0.4 MG CAPSULE PO SCH (08:11)
[2017-09-05] MEDS: ESCITALOPRAM 10 MG TABLET PO SCH (08:11)
[2017-09-05] MEDS: POTASSIUM CHLORIDE 20 MEQ TABLET PO SCH (08:11)
[2017-09-05] MEDS: VANCOMYCIN INJ 1,500 MG in SODIUM CHLORIDE 0.9% 500 ML IV SCH (11:00)
[2017-09-05] MEDS: levETIRAcetam 250 MG TABLET PO SCH (22:17)
[2017-09-06] MEDS: VANCOMYCIN INJ 1,500 MG in SODIUM CHLORIDE 0.9% 500 ML IV SCH (04:48)
[2017-09-06] MEDS: LACTULOSE 20 GM/30 ML UDCUP PO SCH ×4 (04:49→21:08)
[2017-09-06 05:56] LABS: Calcium 7.7 MG/DL (8.5-10.1); Osmolality,Calculated 275.8 MOS/KG (273-304); Potassium 3.5 MMOL/L (3.5-5.1)
[2017-09-06] MEDS: FUROSEMIDE 20 MG TABLET PO SCH (09:22)
[2017-09-06] MEDS: POTASSIUM CHLORIDE 20 MEQ TABLET PO SCH (09:23)
[2017-09-06] MEDS: LEVOTHYROXINE 50 MCG TABLET PO SCH (09:23)
[2017-09-06] MEDS: SPIRONOLACTONE 50 MG TABLET PO SCH (09:23)
[2017-09-06] MEDS: ESCITALOPRAM 10 MG TABLET PO SCH (09:23)
[2017-09-06] MEDS: TAMSULOSIN 0.4 MG CAPSULE PO SCH (09:23)
[2017-09-06] MEDS: levETIRAcetam 250 MG TABLET PO SCH ×2 (11:22→21:08)
[2017-09-06] MEDS: PIPERACILLIN/TAZOBACTAM 3,375 MG in SODIUM CHLORIDE 0.9% 100 ML IV SCH ×2 (15:24→16:01)
[2017-09-07] MEDS: PIPERACILLIN/TAZOBACTAM 3,375 MG in SODIUM CHLORIDE 0.9% 100 ML IV SCH ×3 (01:12→17:51)
[2017-09-07 03:59] LABS: Calcium 8.1 MG/DL (8.5-10.1); Osmolality,Calculated 275.8 MOS/KG (273-304); Potassium 3.8 MMOL/L (3.5-5.1)
[2017-09-07] MEDS: LACTULOSE 20 GM/30 ML UDCUP PO SCH ×3 (04:13→15:03)
[2017-09-07] MEDS: FUROSEMIDE 20 MG TABLET PO SCH (08:29)
[2017-09-07] MEDS: SPIRONOLACTONE 50 MG TABLET PO SCH (08:29)
[2017-09-07] MEDS: levETIRAcetam 250 MG TABLET PO SCH ×2 (08:30→21:01)
[2017-09-07] MEDS: LEVOTHYROXINE 50 MCG TABLET PO SCH (08:31)
[2017-09-07] MEDS: POTASSIUM CHLORIDE 20 MEQ TABLET PO SCH (08:31)
[2017-09-07] MEDS: ESCITALOPRAM 10 MG TABLET PO SCH (08:31)
[2017-09-07] MEDS: TAMSULOSIN 0.4 MG CAPSULE PO SCH (08:31)
[2017-09-07] MEDS ORDERED: VANCOMYCIN INJ 1,500 MG in SODIUM CHLORIDE 0.9% 500 ML IV ONE (11:00)
[2017-09-07] MEDS ORDERED: ACETAMINOPHEN 500 MG TABLET PO PRN (15:11)
[2017-09-07] MEDS ORDERED: ACETAMINOPHEN 500 MG TABLET PO SCH (18:00)
[2017-09-08] MEDS: PIPERACILLIN/TAZOBACTAM 3,375 MG in SODIUM CHLORIDE 0.9% 100 ML IV SCH ×2 (00:15→09:05)
[2017-09-08] MEDS: LACTULOSE 20 GM/30 ML UDCUP PO SCH ×3 (01:15→16:25)
[2017-09-08 05:42] LABS: Basophils % 0.6 % (0.0-0.8); Eosinophils # 0.3 10*3/uL (0.0-0.87); Eosinophils % 5.3 % (0.00-10.9); Hematocrit 34.7 VOL% (42.0-52.0); Immature Granulocytes % 0.6 %; Immature Granulocytes Absolute 0.03 #; Lymphocytes % 18.9 % (21.2-54.2); Mean Corpuscular HGB Conc 34.6 GM/DL (32-36); Mean Corpuscular Hemoglobin 32 PG (27-34); Mean Corpuscular Volume 93.8 FL (87-102); Mean Platelet Volume 11.7 FL (9.6-12.0); Monocytes # 0.4 10*3/uL (0.11-0.8); Monocytes % 8.4 % (1.7-12.7); Neutrophils # 3.4 10*3/uL (1.4-7.4); Neutrophils % 66.2 % (38.7-73.9); Platelet Count 74 T/CUMM (130-400); Red Cell Distribution Width 16.5 % (9.3-17.3); White Blood Count 5.1 T/CUMM (4-12)
[2017-09-08 06:03] LABS: Calcium 8.2 MG/DL (8.5-10.1); Osmolality,Calculated 274.8 MOS/KG (273-304); Potassium 4.2 MMOL/L (3.5-5.1)
[2017-09-08] MEDS: POTASSIUM CHLORIDE 20 MEQ TABLET PO SCH (09:06)
[2017-09-08] MEDS: SPIRONOLACTONE 50 MG TABLET PO SCH (09:06)
[2017-09-08] MEDS: levETIRAcetam 250 MG TABLET PO SCH ×2 (09:06→21:45)
[2017-09-08] MEDS: FUROSEMIDE 20 MG TABLET PO SCH (09:07)
[2017-09-08] MEDS: TAMSULOSIN 0.4 MG CAPSULE PO SCH (09:07)
[2017-09-08] MEDS: ESCITALOPRAM 10 MG TABLET PO SCH (09:07)
[2017-09-08] MEDS: LEVOTHYROXINE 50 MCG TABLET PO SCH (09:07)
[2017-09-08] MEDS: LEVOFLOXACIN 250 MG TABLET PO SCH (12:25)
[2017-09-09] MEDS: LACTULOSE 20 GM/30 ML UDCUP PO SCH ×3 (00:48→17:54)
[2017-09-09] MEDS: FUROSEMIDE 20 MG TABLET PO SCH (08:21)
[2017-09-09] MEDS: SPIRONOLACTONE 50 MG TABLET PO SCH (08:21)
[2017-09-09] MEDS: TAMSULOSIN 0.4 MG CAPSULE PO SCH (08:21)
[2017-09-09] MEDS: ESCITALOPRAM 10 MG TABLET PO SCH (08:21)
[2017-09-09] MEDS: levETIRAcetam 250 MG TABLET PO SCH (08:21)
[2017-09-09] MEDS: POTASSIUM CHLORIDE 20 MEQ TABLET PO SCH (08:21)
[2017-09-09] MEDS: LEVOTHYROXINE 50 MCG TABLET PO SCH (08:21)
[2017-09-09] MEDS: LEVOFLOXACIN 250 MG TABLET PO SCH (13:59)
[2017-09-09 17:53] VITALS: BP 127/74
== END 2017-09-09 17:15 | DRG 871 ==
LOC: EDBD → EDUNIT# → N.ED 14:59 → N.EDINP 16:58 → SUATTDRO 16:58 → N.CC 21:23 → N.TELES 09-05 06:19
PROVIDERS: ADMIT Internal Medicine; ATTEND Internal Medicine